=== PATIENT | female | born 2000 | race Caucasian/White ===

== ENCOUNTER 2021-03-01 21:58 | Emergency (ER) | payer OTHER, MEDICAID ==
[~2021-03-01] VITALS: Ht 167.6 cm; Wt 56.7 kg
[2021-03-01] MEDS ORDERED: NOHOMEMEDICATIONS (22:10)
[2021-03-01 23:01] LABS: URINE BLOOD NEGATIVE (Negative); URINE CLARITY CLEAR; URINE COLOR YELLOW; URINE GLUCOSE-RANDOM NEGATIVE (Negative); URINE KETONES 1+ (Negative); URINE LEUKOCYTES-REFLEX NEGATIVE (Negative); URINE NITRITE-REFLEX NEGATIVE (Negative); URINE PROTEIN NEGATIVE (Negative); URINE SPECIFIC GRAVITY >= 1.030 (1.005-1.030); URINE UROBILINOGEN 0.2 E.U./dl (0.2-1.0)
[2021-03-01 23:03] LABS: ICTOTEST (BILI CONFIRMATORY) Negative (Negative); URINE BILIRUBIN 1+ (Negative)
[2021-03-01 23:10] LABS: AMP/METHAMP Negative (Negative); BARBITURATES Negative (Negative); BENZODIAZEPINES Negative (Negative); COCAINE Negative (Negative); METHADONE Negative (Negative); OPIATES Negative (Negative); PCP Negative (Negative); THC Negative (Negative)
[2021-03-02] VITALS: BP 94/61
--- NOTE | 2021-03-02 09:48 | EKG ---
[place] [address] ELECTROCARDIOGRAM REPORT Name: OLGA AGUILERA Room: [facility]#: [id number] Admission: 03/01/21 Attend Phys: Discharge: 03/02/21 Date of : [birth year] Date of Service: 03/01/212219 Report #: [id number] THIS REPORT FOR: //name// [facility] ED Test Date: 2021-03-01 Test Time: 22:20:51 Pat Name: OLGA AGUILERA Department: Room: Gender: Entry Manager: : 2000 Requested By: Jinny Segal Order Number: [id number] MD: Kel Roy Measurements Intervals [place] Rate: 79 P: 63 LA: 137 QRS: 77 QRSD: 95 T: 33 QT: 367 QTc: 421 Interpretive Statements Sinus rhythm No previous ECG available for comparison Electronically Signed On 03-02-2021 9:48:31 CDT by Kel Roy [email or web address] <ELECTRONICALLY SIGNED> By: Kel Roy MD, [facility] 03/02/21947 19 Kel Roy MD, FACC /EPI
== END 2021-03-02 | disposition home or self-care (01) ==
LOC: M.ERS 21:58
PROVIDERS: Personal Emergency Response Attendant
DX: T40.1X1A Poisoning by heroin, accidental (unintentional), initial encounter (principal); Y92.89 Other specified places as the place of occurrence of the external cause